=== PATIENT | male | born 1935 | race Caucasian/White ===

== ENCOUNTER 2020-11-03 10:05 | Inpatient (IN) ==
--- NOTE | 2020-11-03 10:53 | Emergency Department Note ---
Impression & Plan COVID-19, Pneumonia, SOB (shortness of breath) ED Provider Note NAME: PARUL LUX AGE: 85 SEX: M : 1935 ARRIVES VIA: Walk-In INFORMANT: Patient, the patient's family member ED PROVIDER(S): Volodymyr Mukherjee DO CHIEF COMPLAINT: Difficulty breathing HPI: The patient is an 85-year-old male who received the Covid vaccination at the beginning of the month. He states that the Covid vaccine is what is causing most of the symptoms. He states that ever since last week he has been having very severe shortness of breath. The patient describes extensive shortness of breath with any exertion. He states he has a cough with productive sputum. He also complains of low-grade fever. The patient was seen by his primary care ph ysician and was diagnosed with a bronchitis. He was started on Zithromax over the weekend with no improvement of his symptoms. He does complain of low-grade fever. He denies having any chest pain. He denies having any lower extremity swelling or pain. The patient does not have any significant past medical history other than prostate cancer. The patient states his symptoms are moderate to severe and only continue to worsen. The patient states that he has been trying [id number] medication known he continues to worsen. The patient has been also noticing dizziness and fatigue and generalized weakness. He was tested for COVID-19 over the weekend and it was negative. ROS: See above HPI for pertinent positives & negatives. A total of 10 systems reviewed and were otherwise negative. PAST MEDICAL HISTORY: See Below PAST SURGICAL HISTORY: See Below FAMILY HISTORY: See Below SOCIAL HISTORY: See Below HOME MEDICATIONS: See Below ALLERGIES: See Below VITALS: See Below PHYSICAL EXAMINATION: GENERAL: Patient is awake alert in no acute distress patient is resting comfortably and showing no signs of anxiety EYES: The conjunctivae are clear. The pupils are round and reactive. EARS, NOSE, MOUTH AND THROAT: The nose is without any evidence of any deformity. NECK: The neck is nontender and supple. RESPIRATORY: Shallow respirations were noted. There were rales at the left base with diminished breath sounds at the right base. There is mild conversational dyspnea appreciated. CARDIOVASCULAR: Regular rate and rhythm noted there no murmurs rubs or gallops normal S1 normal S2. GASTROINTESTINAL: The abdomen is soft. Abdomen is nontender. MUSCULOSKELETAL/EXTREMITIES: There is no evidence of gross deformity full range of motion is noted in the hips and shoulders. SKIN: There is no obvious evidence of any rash. No significant pedal edema was noted. NEUROLOGIC: Patient is awake alert and oriented x3. MEDICAL DECISION MAKING: Patient is an 85-year-old male who presented to the emergency department with family member for an evaluation of severe shortness of breath. The patient was having shortness of breath which was very significant with any exertion. He recently was vaccinated for COVID-19. He was tested again for COVID-19 in the emergency department and was found to be positive. I discussed the patient's laboratory and radiographic studies with him. He was not significantly hypoxic but became very dyspneic with any short walking or any exertion. For this reason I discussed this case with the on-call [facility] group the patient's family members were very uncomfortable with him being discharged to home given he was recently seen at [facility] for similar complaints. Triage Nursing notes reviewed. Prior medical records reviewed Vital Signs: reviewed and remarkable for tachypnea and elevated blood pressure. Differential diagnosis: Reactive airway disease, pneumonia, pneumothorax, COPD, CHF, infections, cardiac ischemia, pulmonary embolism, musculoskeletal, gastrointestinal, as well as other pathologies. ER treatment provided: See below Diagnostics interpreted by me: ECG: EKG was obtained in the emergency department. My interpretation is sinus bradycardia 58 bpm. There is no ectopy. There was no acute ST segment abnormalities noted. No previous tracing was available. Cardiac Monitoring: An order was placed for continuous cardiac monitoring. The monitor shows a rate of 55 bpm with sinus bradycardia rhythm. Laboratory studies: As stated above and show below. Imaging studies: See below Consultation(s): 1300: I discussed this case with Dr. Jefferson who is on-call for the [facility] hospitalist group. Past Med/Surg History Medical History History of cataract Prostate cancer Surgical History History of prostatectomy Social History Smoking Status: Never smoker Second Hand Exposure: No; Do You Dip or Chew Tobacco: No; Hx Alcohol Use: Yes Alcohol type: beer Hx Substance Use: No Preferred Language: [place]orese Communication Ability: Effective Inventory Control Analyst Required: No Beliefs That Will Affect Care: None Current Living Situation: Alone Feels Safe at Home: Yes Safety Concerns: Feels Safe At This Time Assistive Devices: None Allergies Allergies Allergy/AdvReac Type Severity Reaction Status Date / Time latex AdvReac skin Verified 11/03/20 11:40 irritation Home Meds Home Medications Medication Instructions Recorded Confirmed acetaminophen [Tylenol] 650 mg PO QID PRN 11/03/20 11/03/20 Results & Data (ED) Vital Signs Vital Signs - 24 hr 11/03/20 10:12 11/03/20 10:57 11/03/20 10:58 Temperature 37.1 C Temperature Source Temporal Artery Scan Pulse Rate 69 Pulse Rate [Right Finger] Respiratory Rate 16 Respiratory Effort / Characteristics Non-Labored Spontaneous Respiratory Depth Normal Blood Pressure 104/62 Blood Pressure [Right Arm] Blood Pressure Mean 76 Blood Pressure Mean [Right Arm] Pulse Oximetry 94 Oxygen Delivery Method Room Air Room Air Sepsis Recent Fever Within 48 Hours No Sepsis New/Unexplained Change in Mental Status No Sepsis Action Taken by Nursing No Action Required 11/03/20 11:54 11/03/20 12:31 11/03/20 13:00 Temperature Temperature Source Pulse Rate Pulse Rate [Right Finger] 62 64 64 Respiratory Rate 24 21 26 H Respiratory Effort / Characteristics Non-Labored Respiratory Depth Normal Blood Pressure Blood Pressure [Right Arm] 126/67 127/74 114/63 Blood Pressure Mean Blood Pressure Mean [Right Arm] 86 91 80 Pulse Oximetry 95 96 96 Oxygen Delivery Method Room Air Room Air Room Air Sepsis Recent Fever Within 48 Hours Sepsis New/Unexplained Change in Mental Status Sepsis Action Taken by [facility] Medications Current Medication List: was personally reviewed by me Laboratory Data Attestation: I reviewed the patient's lab results. Result diagrams: 11/03/20 10:53 11/03/20 10:53 Lab Results 11/03/20 11/03/20 11/03/20 Range/Units 10:53 10:53 10:53 WBC 5.96 (4.8-10.8) K/uL RBC 4.75 (4.7-6.1) M/uL Hgb 14.3 (14.0-18.0) g/dL Hct 40.9 L (42-52) % MCV 86.1 (80-100) fL MCH 30.1 (25-34) pg MCHC 35.0 (32-36) g/dL RDW Std Deviation 40.2 (36.4-46.3) fL RDW Coeff of Tyrell 12.5 (11.5-14.5) % Plt Count 175 (130-400) K/uL MPV 11.5 H (7.4-10.4) fL Immature Gran % (Auto) 0.2 % Neut % (Auto) 88.6 % Lymph % (Auto) 6.5 % [place] % (Auto) 4.7 % Eos % (Auto) 0.0 % Baso % (Auto) 0.0 % Neut # (Auto) 5.28 (1.4-6.5) K/uL Lymph # (Auto) 0.39 L (1.2-3.4) K/uL [place] # (Auto) 0.28 (0.11-0.59) K/uL Eos # (Auto) 0.00 (0-0.5) K/uL Baso # (Auto) 0.00 (0-0.2) K/uL Immature Gran # (Auto) 0.01 (0.00-0.02) K/uL PT 10.0 (9.0-12.0) Seconds INR 1.0 (0.9-1.1) APTT 28.0 (21.0-31.0) Seconds PTT Ratio 1.1 D-Dimer 2250 H* (0-500) ug/L FEU Sodium 138 (136-145) mmol/L Potassium 3.7 (3.5-5.1) mmol/L Chloride 105 (98-107) mmol/L Carbon Dioxide 27 (21-32) mmol/L Anion Gap 6.0 (3-11) BUN 12 (7-18) mg/dl Creatinine 0.97 (0.6-1.4) mg/dl Est Cr Clr Drug Dosing Not Reportable Est GFR ( Amer) 83.3 Est GFR (Non-Af Amer) 71.9 BUN/Creatinine Ratio 12.8 (10-20) Glucose 105 H (70-99) mg/dl Calcium 8.2 L (8.5-10.1) mg/dl Magnesium 2.1 (1.8-2.4) mg/dl Total Bilirubin 0.5 (0.2-1) mg/dl AST 34 (15-37) U/L ALT 26 (12-78) U/L Alkaline Phosphatase 30 L (45-117) U/L Troponin I < 0.015 (0-0.045) ng/ml NT-Pro-B Natriuret Pep 535 (0-1800) pg/ml Total Protein 6.0 L (6.4-8.2) gm/dl Albumin 2.7 L (3.4-5.0) gm/dl Globulin 3.3 (2.5-4.0) gm/dl Albumin/Globulin Ratio 0.8 L (0.9-2) Urine Color Urine Appearance (Clear) Urine pH (4.5-7.5) Ur Specific [place] (1.000-1.030) Urine Protein (Negative) Urine Glucose (UA) (Negative) Urine Ketones (Negative) Urine Blood (Negative) Urine Nitrite (Negative) Urine Bilirubin (Negative) Urine Urobilinogen (Negative) Ur Leukocyte Esterase (Negative) Urine WBC (Auto) (0-5) /hpf Urine RBC (Auto) (0-4) /hpf U Hyaline Cast (Auto) (0-5) /lpf U Epithel Cells (Auto) (0-5) /lpf Urine Bacteria (Auto) (Negative) COVID-19 Eval Order SARS-CoV-2 (PCR) (Negative) Influenza Type A (PCR) (Neg) Influenza Type B (PCR) (Neg) RSV (RT-PCR) (Neg) 11/03/20 11/03/20 11/03/20 Range/Units 11:31 11:31 12:25 WBC (4.8-10.8) K/uL RBC (4.7-6.1) M/uL Hgb (14.0-18.0) g/dL Hct (42-52) % MCV (80-100) fL MCH (25-34) pg MCHC (32-36) g/dL RDW Std Deviation (36.4-46.3) fL RDW Coeff of Tyrell (11.5-14.5) % Plt Count (130-400) K/uL MPV (7.4-10.4) fL Immature Gran % (Auto) % Neut % (Auto) % Lymph % (Auto) % [place] % (Auto) % Eos % (Auto) % Baso % (Auto) % Neut # (Auto) (1.4-6.5) K/uL Lymph # (Auto) (1.2-3.4) K/uL [place] # (Auto) (0.11-0.59) K/uL Eos # (Auto) (0-0.5) K/uL Baso # (Auto) (0-0.2) K/uL Immature Gran # (Auto) (0.00-0.02) K/uL PT (9.0-12.0) Seconds INR (0.9-1.1) APTT (21.0-31.0) Seconds PTT Ratio D-Dimer (0-500) ug/L FEU Sodium (136-145) mmol/L Potassium (3.5-5.1) mmol/L Chloride (98-107) mmol/L Carbon Dioxide (21-32) mmol/L Anion Gap (3-11) BUN (7-18) mg/dl Creatinine (0.6-1.4) mg/dl Est Cr Clr Drug Dosing Est GFR ( Amer) Est GFR (Non-Af Amer) BUN/Creatinine Ratio (10-20) Glucose (70-99) mg/dl Calcium (8.5-10.1) mg/dl Magnesium (1.8-2.4) mg/dl Total Bilirubin (0.2-1) mg/dl AST (15-37) U/L ALT (12-78) U/L Alkaline Phosphatase (45-117) U/L Troponin I (0-0.045) ng/ml NT-Pro-B Natriuret Pep (0-1800) pg/ml Total Protein (6.4-8.2) gm/dl Albumin (3.4-5.0) gm/dl Globulin (2.5-4.0) gm/dl Albumin/Globulin Ratio (0.9-2) Urine Color Dark Yellow Urine Appearance Clear (Clear) Urine pH 6.0 (4.5-7.5) Ur Specific [place] 1.021 (1.000-1.030) Urine Protein 1+ H (Negative) Urine Glucose (UA) Negative (Negative) Urine Ketones Negative (Negative) Urine Blood Negative (Negative) Urine Nitrite Negative (Negative) Urine Bilirubin Negative (Negative) Urine Urobilinogen Negative (Negative) Ur Leukocyte Esterase Negative (Negative) Urine WBC (Auto) 1-5 (0-5) /hpf Urine RBC (Auto) 0-4 (0-4) /hpf U Hyaline Cast (Auto) 1-5 (0-5) /lpf U Epithel Cells (Auto) 20-30 H (0-5) /lpf Urine Bacteria (Auto) Negative (Negative) COVID-19 Eval Order CovFluRsv at [facility] SARS-CoV-2 (PCR) POSITIVE A* (Negative) Influenza Type A (PCR) Negative (Neg) Influenza Type B (PCR) Negative (Neg) RSV (RT-PCR) Negative (Neg) Imaging Data Radiologist's Impression: Chest X-Ray 11/03/20 10:53 XR chest 1V portable HISTORY: 85 years-old Male Dyspnea acute shortness of breath COMPARISON: None TECHNIQUE: Portable AP view of the chest FINDINGS: Interstitial opacities of the mid and lower lung zones. No pneumothorax, pleural effusion or overt pulmonary edema. Degenerative changes of the shoulders and spine. Cardiac silhouette is enlarged. IMPRESSION: 1. Interstitial opacities of the mid and lower lung zones may be on a chronic basis or represent an interstitial pneumonitis. 2. Cardiomegaly. ACT 112: Negative or not required by law. The above report was generated using voice recognition software. It may contain grammatical, syntax or spelling errors. Electronically signed by: Burt Cast M.D. 11/03/2020 11:13 AM Discharge Plan Visit Data Chief Complaint: Shortness of Breath/Dyspnea Stated Complaint: SOB ED Provider: Volodymyr Mukherjee Discharge Problem: COVID-19, Pneumonia, SOB (shortness of breath) Patient Disposition: Being Evaluated by Hospitalist Condition: Good Discharge Instructions Interventions: ED Discharge Assessment Last Done: 11/03/20 14:37 Discharge Problem: Pneumonia Qualifiers: Pneumonia type: due to unspecified organism Laterality: bilateral Lung location: unspecified part of lung Qualified Code(s): J18.9 - Pneumonia, unsp ecified organism
--- NOTE | 2020-11-03 11:14 | XRay Report ---
XR chest 1V portable HISTORY: 85 years-old Male Dyspnea acute shortness of breath COMPARISON: None TECHNIQUE: Portable AP view of the chest FINDINGS: Interstitial opacities of the mid and lower lung zones. No pneumothorax, pleural effusion or overt pu lmonary edema. Degenerative changes of the shoulders and spine. Cardiac silhouette is enlarged. IMPRESSION: 1. Interstitial opacities of the mid and lower lung zones may be on a chronic basis or represent an i nterstitial pneumonitis. 2. Cardiomegaly. ACT 112: Negative or not required by law. The above report was generated using voice recognition software. It may contain grammatical, syntax o r spelling errors. Electronically signed by: Burt Cast M.D. 11/03/2020 11:13 AM
[2020-11-03 11:19] LABS: Hematocrit (blood only) 40.9 % (42-52); Hemoglobin 14.3 g/dL (14.0-18.0); Immature Granulocytes # (auto) 0.01 K/uL (0.00-0.02); Immature Granulocytes % (auto) 0.2 %; Lymphocytes # (auto) 0.39 K/uL (1.2-3.4); Lymphocytes % (auto) 6.5 %; Mean Corpuscular Hemoglobin 30.1 pg (25-34); Mean Corpuscular Volume 86.1 fL (80-100); Mean Platelet Volume 11.5 fL (7.4-10.4); Monocytes # (auto) 0.28 K/uL (0.11-0.59); Monocytes % (auto) 4.7 %; Neutrophils # (auto) 5.28 K/uL (1.4-6.5); Neutrophils % (auto) 88.6 %; Platelet Count 175 K/uL (130-400); RDW Coefficient of Variation 12.5 % (11.5-14.5); RDW Standard Deviation 40.2 fL (36.4-46.3); Red Blood Count 4.75 M/uL (4.7-6.1); White Blood Count 5.96 K/uL (4.8-10.8)
[2020-11-03 11:38] LABS: Alanine Aminotransferase 26 U/L (12-78); Albumin Level 2.7 gm/dl (3.4-5.0); Aspartate Aminotransferase 34 U/L (15-37); BUN Creatinine Ratio 12.8 (10-20); Blood Urea Nitrogen 12 mg/dl (7-18); Calcium 8.2 mg/dl (8.5-10.1); Carbon Dioxide 27 mmol/L (21-32); Chloride 105 mmol/L (98-107); Est GFR (African American) 83.3; Est GFR (Non-African American) 71.9; Glucose 105 mg/dl (70-99); Magnesium 2.1 mg/dl (1.8-2.4); Partial Thromboplastin Ratio 1.1; Potassium 3.7 mmol/L (3.5-5.1); Sodium 138 mmol/L (136-145)
[2020-11-03 11:43] LABS: Albumin Globulin Ratio 0.8 (0.9-2); Alkaline Phosphatase 30 U/L (45-117); Bilirubin,Total 0.5 mg/dl (0.2-1); D Dimer 2250 ug/L FEU (0-500); Globulin 3.3 gm/dl (2.5-4.0); NT Pro B Type Natriuretic Pept 535 pg/ml (0-1800); Troponin I < 0.015 ng/ml (0-0.045)
[2020-11-03 12:21] LABS: Influenza A virus by PCR Negative (Neg); Influenza B virus by PCR Negative (Neg); RSV by PCR Negative (Neg)
[2020-11-03 12:38] LABS: SARS CoV2 RNA(COVID-19) InHosp POSITIVE (Negative)
[2020-11-03 12:53] LABS: Appearance Urine Clear (Clear); Bacteria Urine Automated Negative (Negative); Bilirubin Urine Negative (Negative); Blood Urine Negative (Negative); Color Urine Dark Yellow; Epithelial Cell Urine Auto 20-30 /lpf (0-5); Glucose Urine UA Negative (Negative); Ketones Urine Negative (Negative); Leukocyte Esterase Urine Negative (Negative); Nitrite Urine Negative (Negative); Protein Urine 1+ (Negative); RBC Urine Automated 0-4 /hpf (0-4); Specific Gravity Urine 1.021 (1.000-1.030); Urobilinogen Urine Negative (Negative)
--- NOTE | 2020-11-03 13:17 | History & Physical Report ---
Date of Service November 03, 2020 Assessment & Plan (1) COVID-19: Main symptoms of shortness of breath on exertion and fatigue Isolation precautions. Self prone as able. Given no hypoxia of significant respiratory distress at rest will defer any treatment at this time. (2) DVT prophylaxis: Increased d-dimer in setting of COVID-19 pneumonia therefore will given increased dose. Lovenox 40mg SQ BID Admission and Anticipated Discharge Date Admission Date: November 03, 2020 History of Present Illness Chief Complaint: Upper respiratory illness Primary Care Provider: Haile Richardson Rafi Swift is an 85-year-old male who presents to the ER with ongoing upper respiratory symptoms. Reports having his 1st dose of the Pfizer vaccine on October 22. Following this he appears to become unwell around October 27. Initial symptoms of fever, chills, shortness of breath, cough, fatigue. He denies any loss of taste or smell, myalgias, headache, sore throat, diarrhea, nausea/vomiting. Initially saw his primary care physician 3 days ago who diagnosed bronchitis and he was started on azithromycin. His symptoms continued to get worse and the following day went to located in emergency room and was discharged after about 4 hours. He was not diagnosed with COVID-19 pneumonia on either these occasions although unclear when/if a test was taken as he denies any nasal swabs. His son has been living with him for the past 4 days and has witnessed his decline with activities of daily living during this time. His appetite is significantly suppressed, very short of breath on minimal exertion and very fatigued. Today was so bad he was unable to feed himself. He usually lives alone in a 2nd floor apartment. Prior to this illness he was healthy with no chronic medical conditions. In the ER chest x-ray was concerning for interstitial infiltrates. Labs significant for lymphopenia with elevated D-dimer. SARS-CoV-2 PCR nasal swab positive. Initially plan to discharge as the patient is not hypoxic at rest however his son feels he is not safe to return home at the current time and fatigue state especially given he has to make it up a flight of stairs to get back into his apartment. Allergies Allergy/AdvReac Type Severity Reaction Status Date / Time latex AdvReac skin Verified 11/03/20 11:40 irritation Home Medications Medication Instructions Recorded Confirmed Type acetaminophen [Tylenol] 650 mg PO QID PRN 11/03/20 11/03/20 History Past Med/Surg History Medical History History of cataract Prostate cancer Surgical History History of prostatectomy Social History Smoking Status: Never smoker Second Hand Exposure: No; Do You Dip or Chew Tobacco: No; Hx Alcohol Use: Yes Alcohol type: beer Hx Substance Use: No Preferred Language: Slovenian Communication Ability: Effective Custom Shoemaker Required: No Beliefs That Will Affect Care: None Current Living Situation: Alone Feels Safe at Home: Yes Safety Concerns: Feels Safe At This Time Assistive Devices: Denture - Upper Review of Systems Review of Systems: All systems reviewed & are unremarkable except as noted in HPI & below Physical Exam Constitutional: well developed and well nourished; no acute distress Eyes: + anicteric sclerae; normal pupil size ENMT: Ears: no external ear abnormality Nose: no external nose abnormality Mouth: + dry oral mucous membranes Neck: trachea midline, no thyromegaly Respiratory: normal respiratory effort and able to speak in complete sentences; no retractions, does not use accessory muscles, no cough, normal respiratory pattern, not tachypneic and expiratory phase not prolonged Auscultation: + diminished lung sounds (Right > Left) and + crackles (Left > right); no wheezes Cardiovascular: RRR, no murmur, no edema Gastrointestinal (Abdomen): normal bowel sounds, soft, nontender, no hepatosplenomegaly Musculoskeletal: no cyanosis or clubbing, extremities motor strength 5/5 Skin: no rashes, warm and dry Neurologic: moves all extremities and awake; not confused Psychiatric: A+Ox3, euthymic affect Results & Data Results & Data ([facility]) Vital Signs (Past 12 Hours) Vital Signs Temp Pulse Pulse Resp BP BP Pulse Ox 11/03/20 11:54 62 24 126/67 95 11/03/20 10:12 37.1 C 69 16 104/62 94 Diagnostic Findings XR chest 1V portable IMPRESSION: 1. Interstitial opacities of the mid and lower lung zones may be on a chronic basis or represent an interstitial pneumonitis. 2. Cardiomegaly. Medications Administered ER Medications Given: None ECG Indication: SOB/dyspnea Rate (beats per minute): 58 Rhythm: sinus with SA Findings: no acute ischemic change Change: no significant change Code Status & VTE Plan Code Status Full VTE Prophylaxis Plan VTE Prophylaxis will be ordered: Yes PG Care Time/CCT Total # of Minutes Spent Total Time Spent with Patient: Total time spent is greater than 50% in coordination of care (as documented) at patient's floor/unit and/or counseling patient: Coding Level of Care Code 56708 OBS Care - Level 2 Diagnoses COVID-19 U07.1 DVT prophylaxis Z29.9
[2020-11-03] MEDS ORDERED: POLYETHYLENE (MIRALAX) 17 GM PACK PO PRN (15:17)
[2020-11-03] MEDS ORDERED: ONDANSETRON INJ 2 MG/ML 2 ML VIAL IV PRN (15:17)
[2020-11-03] MEDS: ACETAMINOPHEN 325 MG TAB PO PRN ×2 (16:40→21:30)
[2020-11-03] MEDS: ENOXAPARIN INJ 40 MG/0.4 ML SYR SQ SCH (21:30)
--- NOTE | 2020-11-04 06:37 | Electrocardiogram Report ---
Test Reason : Blood Pressure : / mmHG Vent. Rate : 058 BPM Atrial Rate : 058 BPM P-R Int : 134 ms QRS Dur : 076 ms QT Int : 416 ms P-R-T Axes : 011 -01 024 degrees QTc Int : 408 ms Sinus bradycardia with marked sinus arrhythmia Low voltage QRS Borderline ECG No previous ECGs available Confirmed by Jayden Henriquez ([id number]) on 11/04/2020 6:37:14 AM Referred By: Confirmed By:Jayden Henriquez
[2020-11-04 07:11] LABS: Basophils # (auto) 0.02 K/uL (0-0.2); Basophils % (auto) 0.4 %; Hematocrit (blood only) 42.9 % (42-52); Hemoglobin 14.7 g/dL (14.0-18.0); Immature Granulocytes # (auto) 0.02 K/uL (0.00-0.02); Immature Granulocytes % (auto) 0.4 %; Lymphocytes % (auto) 12.6 %; Mean Corpuscular Hemoglobin 29.7 pg (25-34); Mean Corpuscular Hgb Conc 34.3 g/dL (32-36); Mean Corpuscular Volume 86.7 fL (80-100); Mean Platelet Volume 11.3 fL (7.4-10.4); Monocytes # (auto) 0.27 K/uL (0.11-0.59); Monocytes % (auto) 4.9 %; Neutrophils # (auto) 4.53 K/uL (1.4-6.5); Neutrophils % (auto) 81.7 %; Platelet Count 186 K/uL (130-400); RDW Coefficient of Variation 12.6 % (11.5-14.5); RDW Standard Deviation 40.1 fL (36.4-46.3); Red Blood Count 4.95 M/uL (4.7-6.1); White Blood Count 5.54 K/uL (4.8-10.8)
[2020-11-04 07:46] LABS: Albumin Level 2.5 gm/dl (3.4-5.0); BUN Creatinine Ratio 14.3 (10-20); C Reactive Protein 3.34 mg/dl (0-0.29); Calcium 8.3 mg/dl (8.5-10.1); Creatinine Clr Calc Pharmacy 52.1 ml/min; Est GFR (African American) 83.3; Est GFR (Non-African American) 71.9; Potassium 3.8 mmol/L (3.5-5.1)
[2020-11-04 07:49] LABS: Albumin Globulin Ratio 0.7 (0.9-2); Bilirubin,Total 0.5 mg/dl (0.2-1); Globulin 3.6 gm/dl (2.5-4.0); Total Protein 6.1 gm/dl (6.4-8.2)
[2020-11-04] MEDS: dexAMETHasone 6 MG in SYRINGE 0 ML IV SCH (08:49)
[2020-11-04] MEDS: ENOXAPARIN INJ 40 MG/0.4 ML SYR SQ SCH ×2 (08:49→21:15)
[2020-11-04] MEDS ORDERED: DEXAMETHASONE SOD INJ 4 MG/ML VIAL IV SCH (09:00)
[2020-11-04] MEDS: ACETAMINOPHEN 325 MG TAB PO PRN (10:45)
--- NOTE | 2020-11-04 16:20 | Hospitalist Progress Note ---
Date of Service November 04, 2020 Assessment & Plan (1) COVID-19: Main symptoms of shortness of breath on exertion and fatigue Isolation precautions. Self prone as able. patients saturations dropped to 93% so I started dexamethasone 6mg IV daily get PT/OT evaluations to determine if he can go home likely here 2-3 days (2) DVT prophylaxis: Increased d-dimer in setting of COVID-19 pneumonia therefore will given increased dose. Lovenox 40mg SQ BID Admission and Anticipated Discharge Date Admission Date: November 03, 2020 Subjective patient doing well, breathing comfortably on room air saturations 94-96% at rest eating and drinking well waiting for therapy evaluations, he lives alone so need to be sure that he will be safe at home reviewed chart reviewed labs Review of Systems Review of Systems: All systems reviewed & are unremarkable except as noted in Subjective Constitutional: + fatigue and + weakness; no fever, no chills and no sweats Respiratory: no cough, no dyspnea and no dyspnea on exertion Cardiovascular: no chest pain and no edema Gastrointestinal: no abdominal pain, no nausea, no vomiting, no constipation and no diarrhea/loose stools Physical Exam Constitutional: WD/WN, vitals as above no acute distress Neck: trachea midline, no thyromegaly Respiratory: normal respiratory effort, lungs clear to auscultation Cardiovascular: RRR, no murmur, no edema Gastrointestinal (Abdomen): normal bowel sounds, soft, nontender, no hepatosplenomegaly Musculoskeletal: no cyanosis or clubbing, extremities motor strength 5/5 Skin: no rashes, warm and dry Neurologic: patellar DTR's 2+ bilat, sensation intact and PERRL, EOMI, accommodation nl, no face palsy, no dysarthria Psychiatric: A+Ox3, euthymic affect Lymphatic: no cervical or axillary lymphadenopathy Results & Data Results & Data ([facility]) Vital Signs (Past 12 Hours) Vital Signs Temp Pulse Pulse Resp BP BP Pulse Ox 11/04/20 15:18 36.4 C L 60 18 116/72 95 11/04/20 12:42 36.9 C 63 18 95 11/04/20 12:11 93 11/04/20 11:40 103/61 11/04/20 11:30 37.4 C 75 20 95/60 L 93 11/04/20 10:45 37.9 C H 11/04/20 08:03 37.9 C H 61 18 142/71 H 93 Laboratory Results Laboratory Results - last 24 hr 11/04/20 11/04/20 06:26 06:26 WBC 5.54 RBC 4.95 Hgb 14.7 Hct 42.9 MCV 86.7 MCH 29.7 MCHC 34.3 RDW Std Deviation 40.1 RDW Coeff of Tyrell 12.6 Plt Count 186 MPV 11.3 H Immature Gran % (Auto) 0.4 Neut % (Auto) 81.7 Lymph % (Auto) 12.6 [place] % (Auto) 4.9 Eos % (Auto) 0.0 Baso % (Auto) 0.4 Neut # (Auto) 4.53 Lymph # (Auto) 0.70 L [place] # (Auto) 0.27 Eos # (Auto) 0.00 Baso # (Auto) 0.02 Immature Gran # (Auto) 0.02 Sodium 138 Potassium 3.8 Chloride 103 Carbon Dioxide 29 Anion Gap 6.0 BUN 14 Creatinine 0.97 Est Cr Clr Drug Dosing 52.1 Est GFR ( Amer) 83.3 Est GFR (Non-Af Amer) 71.9 BUN/Creatinine Ratio 14.3 Glucose 80 Calcium 8.3 L Total Bilirubin 0.5 AST 40 H ALT 23 Alkaline Phosphatase 32 L C-Reactive Protein 3.34 H Total Protein 6.1 L Albumin 2.5 L Globulin 3.6 Albumin/Globulin Ratio 0.7 L Medications Administered Current Inpatient Medications Acetaminophen (Acetaminophen 325 Mg Tab) 650 mg PO Q4H PRN PRN Reason: pain/fever Stop: 12/03/20 15:16 Last Admin: 11/04/20 10:45 Dose: 650 mg Documented by: Enoxaparin Sodium (Enoxaparin Inj 40 Mg/0.4 Ml Syr) 40 mg SQ BID [facility] Stop: 12/03/20 20:59 Last Admin: 11/04/20 08:49 Dose: 40 mg Documented by: Dexamethasone 6 mg/ Syringe 1.5 mls @ 1 mls/min IV DAILY DIYA Stop: 12/04/20 08:59 Last Admin: 11/04/20 08:49 Dose: 1 mls/min Documented by: Ondansetron HCl (Ondansetron Inj 2 Mg/Ml 2 Ml Vial) 4 mg IV Q6H PRN PRN Reason: Nausea Stop: 12/03/20 15:16 Polyethylene Glycol (Polyethylene (Miralax) 17 Gm Pack) 17 gm PO DAILY PRN PRN Reason: Constipation Stop: 12/03/20 15:16 PG Care Time/CCT Total # of Minutes Spent Total Time Spent with Patient: Total time spent is greater than 50% in coordination of care (as documented) at patient's floor/unit and/or counseling patient: Coding Level of Care Code 67762 Subseq Hosp Care Lvl 2 Diagnoses COVID-19 U07.1 DVT prophylaxis Z29.9
[2020-11-05] MEDS: ENOXAPARIN INJ 40 MG/0.4 ML SYR SQ SCH ×2 (08:49→20:30)
[2020-11-05] MEDS: dexAMETHasone 6 MG in SYRINGE 0 ML IV SCH (08:49)
[2020-11-05] MEDS: ACETAMINOPHEN 325 MG TAB PO PRN (09:21)
[2020-11-05] MEDS ORDERED: guaiFENesin 600 MG TABCR PO STA (09:37)
[2020-11-05] MEDS: AZITHROMYCIN 250 MG TAB PO SCH (10:45)
--- NOTE | 2020-11-05 12:56 | Hospitalist Progress Note ---
Date of Service November 05, 2020 Assessment & Plan (1) COVID-19: Main symptoms of shortness of breath on exertion and fatigue Isolation precautions. Self prone as able. patients saturations dropped to 93% so I started dexamethasone 6mg IV daily on 11/04 continue dexamethasone, day 2, saturations still in the range of 93-95% get PT/OT evaluations to determine if he can go home, still pending likely here over the weekend as he lives alone and would not be strong enough to be alone (2) DVT prophylaxis: Lovenox 40mg SQ BID Admission and Anticipated Discharge Date Admission Date: November 03, 2020 Subjective patient doing well, says he has no issues breathing does admit to a dry cough and wheezing when he takes a deep breath, this is more irritating than anything else he is eating well, no fever, no chills/sweats he says his main issue is overwhelming weakness, he wishes he could get stronger encouraged him to be patient, will work with PT/OT left a voicemail for his son to provide update Review of Systems Review of Systems: All systems reviewed & are unremarkable except as noted in Subjective Constitutional: + weakness; no fever and no fatigue Respiratory: + cough and + wheezing; no dyspnea and no dyspnea on exertion Cardiovascular: no chest pain and no edema Gastrointestinal: no abdominal pain, no nausea, no vomiting, no constipation and no diarrhea/loose stools Musculoskeletal: + muscle weakness (generalized) Physical Exam Constitutional: WD/WN, vitals as above no acute distress Neck: trachea midline, no thyromegaly Respiratory: normal respiratory effort, lungs clear to auscultation Cardiovascular: RRR, no murmur, no edema Gastrointestinal (Abdomen): normal bowel sounds, soft, nontender, no hep atosplenomegaly Musculoskeletal: no cyanosis or clubbing, extremities motor strength 5/5 Skin: no rashes, warm and dry Neurologic: patellar DTR's 2+ bilat, sensation intact and PERRL, EOMI, accommodation nl, no face palsy, no dysarthria Psychiatric: A+Ox3, euthymic affect Lymphatic: no cervical or axillary lymphadenopathy Results & Data Results & Data ([facility]) Vital Signs (Past 12 Hours) Vital Signs Temp Pulse Resp BP Pulse Ox 11/05/20 07:08 37.2 C 61 16 154/75 H 93 Medications Administered Current Inpatient Medications Acetaminophen (Acetaminophen 325 Mg Tab) 650 mg PO Q4H PRN PRN Reason: pain/fever Stop: 12/03/20 15:16 Last Admin: 11/05/20 09:21 Dose: 650 mg Documented by: Azithromycin (Azithromycin 250 Mg Tab) 500 mg PO QAM REPLACED BY [facility] Stop: 11/12/20 09:44 Last Admin: 11/05/20 10:45 Dose: 500 mg Documented by: Enoxaparin Sodium (Enoxaparin Inj 40 Mg/0.4 Ml Syr) 40 mg SQ BID REPLACED BY [facility] Stop: 12/03/20 20:59 Last Admin: 11/05/20 08:49 Dose: 40 mg Documented by: Guaifenesin (Guaifenesin 600 Mg Tabcr) 600 mg PO Q12 REPLACED BY [facility] Stop: 12/05/20 20:59 Dexamethasone 6 mg/ Syringe 1.5 mls @ 1 mls/min IV DAILY REPLACED BY [facility] Stop: 12/04/20 08:59 Last Admin: 11/05/20 08:49 Dose: 1 mls/min Documented by: Ondansetron HCl (Ondansetron Inj 2 Mg/Ml 2 Ml Vial) 4 mg IV Q6H PRN PRN Reason: Nausea Stop: 12/03/20 15:16 Polyethylene Glycol (Polyethylene (Miralax) 17 Gm Pack) 17 gm PO DAILY PRN PRN Reason: Constipation Stop: 12/03/20 15:16 PG Care Time/CCT Total # of Minutes Spent Total Time Spent with Patient: Total time spent is greater than 50% in coordination of care (as documented) at patient's floor/unit and/or counseling patient: Coding Level of Care Code 67833 Subseq Hosp Care Lvl 2 Diagnoses COVID-19 U07.1 DVT prophylaxis Z29.9
[2020-11-05] MEDS: guaiFENesin 600 MG TABCR PO SCH (20:30)
[2020-11-06] MEDS: guaiFENesin 600 MG TABCR PO SCH ×2 (08:31→20:50)
[2020-11-06] MEDS: AZITHROMYCIN 250 MG TAB PO SCH (08:31)
[2020-11-06] MEDS: dexAMETHasone 6 MG in SYRINGE 0 ML IV SCH (08:32)
[2020-11-06] MEDS: ENOXAPARIN INJ 40 MG/0.4 ML SYR SQ SCH ×2 (08:32→20:50)
[2020-11-06] MEDS: ACETAMINOPHEN 325 MG TAB PO PRN (08:53)
--- NOTE | 2020-11-06 22:35 | Hospitalist Progress Note ---
Date of Service November 06, 2020 Assessment & Plan (1) COVID-19: Main symptoms of shortness of breath on exertion and fatigue Isolation precautions. Self prone as able. patients saturations dropped to 93% so I started dexamethasone 6mg IV daily on 11/04 continue dexamethasone, day 3 now with mild hypoxemia, sats were 86% on room air, placed on 2L NC, doing well get PT/OT evaluations to determine if he can go home he is stronger today, ambulating independently in the room likely here over the weekend as he lives alone and would not be strong enough to be alone try to wean off oxygen (2) DVT prophylaxis: Lovenox 40mg SQ BID (3) SOB (shortness of breath): (4) Acute respiratory failure with hypoxia: due to COVID on 2L NC today, no distress at all try to wean as tolerated Admission and Anticipated Discharge Date Admission Date: November 05, 2020 Subjective patient was a little hypoxic this morning, 86% room air, no distress placed on 2L, admits he feels better, saturations all > 92% eating well, his strength is better, walking around the room today no fever, no diarrhea, making urine updated his grand daughter over the phone Review of Systems Review of Systems: All systems reviewed & are unremarkable except as noted in Subjective Physical Exam Constitutional: WD/WN, vitals as above no acute distress Neck: trachea midline, no thyromegaly Respiratory: normal respiratory effort, lungs clear to auscultation Cardiovascular: RRR, no murmur, no edema Gastrointestinal (Abdomen): normal bowel sounds, soft, nontender, no hepatosplenomegaly Musculoskeletal: no cyanosis or clubbing, extremities motor strength 5/5 Skin: no rashes, warm and dry Neurologic: patellar DTR's 2+ bilat, sensation intact and PERRL, EOMI, accommodation nl, no face palsy, no dysarthria Psychiatric: A+Ox3, euthymic affect Lymphatic: no cervical or axillary lymphadenopathy Results & Data Results & Data ([facility]) Vital Signs (Past 12 Hours) Vital Signs Temp Pulse Resp BP Pulse Ox 11/06/20 16:59 36.6 C 76 20 107/63 92 Medications Administered Current Inpatient Medications Acetaminophen (Acetaminophen 325 Mg Tab) 650 mg PO Q4H PRN PRN Reason: pain/fever Stop: 12/03/20 15:16 Last Admin: 11/06/20 08:53 Dose: 650 mg Documented by: Azithromycin (Azithromycin 250 Mg Tab) 500 mg PO QAM COUNTS INCLUDE 234 BEDS AT THE [facility] Stop: 11/12/20 09:44 Last Admin: 11/06/20 08:31 Dose: 500 mg Documented by: Enoxaparin Sodium (Enoxaparin Inj 40 Mg/0.4 Ml Syr) 40 mg SQ BID COUNTS INCLUDE 234 BEDS AT THE [facility] Stop: 12/03/20 20:59 Last Admin: 11/06/20 20:50 Dose: 40 mg Documented by: Guaifenesin (Guaifenesin 600 Mg Tabcr) 600 mg PO Q12 DI[facility] Stop: 12/05/20 20:59 Last Admin: 11/06/20 20:50 Dose: 600 mg Documented by: Dexamethasone 6 mg/ Syringe 1.5 mls @ 1 mls/min IV DAILY COUNTS INCLUDE 234 BEDS AT THE [facility] Stop: 12/04/20 08:59 Last Admin: 11/06/20 08:32 Dose: 1 mls/min Documented by: Ondansetron HCl (Ondansetron Inj 2 Mg/Ml 2 Ml Vial) 4 mg IV Q6H PRN PRN Reason: Nausea Stop: 12/03/20 15:16 Polyethylene Glycol (Polyethylene (Miralax) 17 Gm Pack) 17 gm PO DAILY PRN PRN Reason: Constipation Stop: 12/03/20 15:16 PG Care Time/CCT Total # of Minutes Spent Total Time Spent with Patient: Total time spent is greater than 50% in coordination of care (as documented) at patient's floor/unit and/or counseling patient: Coding Level of Care Code 88473 Subseq Hosp Care Lvl 2 Diagnoses COVID-19 U07.1 DVT prophylaxis Z29.9 SOB (shortness of breath) R06.02 Acute respiratory failure with hypoxia J96.01
[2020-11-07 07:00] LABS: Hematocrit (blood only) 40.8 % (42-52); Hemoglobin 14.3 g/dL (14.0-18.0); Mean Corpuscular Hemoglobin 30.1 pg (25-34); Mean Corpuscular Volume 85.9 fL (80-100); Mean Platelet Volume 10.6 fL (7.4-10.4); Platelet Count 234 K/uL (130-400); RDW Coefficient of Variation 12.4 % (11.5-14.5); RDW Standard Deviation 39.5 fL (36.4-46.3); Red Blood Count 4.75 M/uL (4.7-6.1); White Blood Count 6.26 K/uL (4.8-10.8)
[2020-11-07 07:19] LABS: Creatinine Clr Calc Pharmacy 56.8 ml/min; Est GFR (African American) 91.6; Est GFR (Non-African American) 79.1
[2020-11-07] MEDS: ENOXAPARIN INJ 40 MG/0.4 ML SYR SQ SCH ×2 (08:38→19:58)
[2020-11-07] MEDS: AZITHROMYCIN 250 MG TAB PO SCH (08:38)
[2020-11-07] MEDS: guaiFENesin 600 MG TABCR PO SCH ×2 (08:38→19:57)
[2020-11-07] MEDS: dexAMETHasone 6 MG in SYRINGE 0 ML IV SCH (08:38)
--- NOTE | 2020-11-07 21:57 | Hospitalist Progress Note ---
Date of Service November 07, 2020 Assessment & Plan (1) COVID-19: Main symptoms of shortness of breath on exertion and fatigue Isolation precautions. Self prone as able. patients saturations dropped to 93% so I started dexamethasone 6mg IV daily on 11/04 continue dexamethasone, day 4 now with mild hypoxemia, requiring a little more oxygen today with 3L oxymask get PT/OT evaluations to determine if he can go home he is stronger today, ambulating independently in the room likely here a few more days, will need to wean back to room air (2) DVT prophylaxis: Lovenox 40mg SQ BID (3) SOB (shortness of breath): (4) Acute respiratory failure with hypoxia: due to COVID on 3L mask today, no distress at all try to wean as tolerated Admission and Anticipated Discharge Date Admission Date: November 05, 2020 Subjective patient requiring a little more oxygen today at 3L oxymask no distress, c/o some wheezing and a cough when he takes a deep breath he is eating well, ambulating in the room no fever/chills, no chest pain, no vomiting or diarrhea CBC and Cr are stable I updated his son Palomo over the phone, discussed that he will be here a few days Review of Systems Review of Systems: All systems reviewed & are unremarkable except as noted in Subjective Physical Exam Constitutional: WD/WN, vitals as above no acute distress Neck: trachea midline, no thyromegaly Respiratory: normal respiratory effort, lungs clear to auscultation Cardiovascular: RRR, no murmur, no edema Gastrointestinal (Abdomen): normal bowel sounds, soft, nontender, no hepatosplenomegaly Musculoskeletal: no cyanosis or clubbing, extremities motor strength 5/5 Skin: no rashes, warm and dry Neurologic: patellar DTR's 2+ bilat, sensation intact and PERRL, EOMI, accommodation nl, no face palsy, no dysarthria Psychiatric: A+Ox3, euthymic affect Lymphatic: no cervical or axillary lymphadenopathy Results & Data Results & Data ([facility]) Vital Signs (Past 12 Hours) Vital Signs Temp Pulse Resp BP Pulse Ox 11/07/20 16:20 37 C 55 L 20 128/68 92 Laboratory Results Laboratory Results - last 24 hr 11/07/20 11/07/20 06:51 06:51 WBC 6.26 RBC 4.75 Hgb 14.3 Hct 40.8 L MCV 85.9 MCH 30.1 MCHC 35.0 RDW Std Deviation 39.5 RDW Coeff of Tyrell 12.4 Plt Count 234 MPV 10.6 H Creatinine 0.89 Est Cr Clr Drug Dosing 56.8 Est GFR ( Amer) 91.6 Est GFR (Non-Af Amer) 79.1 Medications Administered Current Inpatient Medications Acetaminophen (Acetaminophen 325 Mg Tab) 650 mg PO Q4H PRN PRN Reason: pain/fever Stop: 12/03/20 15:16 Last Admin: 11/06/20 08:53 Dose: 650 mg Documented by: Azithromycin (Azithromycin 250 Mg Tab) 500 mg PO QAM ON LICENSE OF [facility] Stop: 11/12/20 09:44 Last Admin: 11/07/20 08:38 Dose: 500 mg Documented by: Enoxaparin Sodium (Enoxaparin Inj 40 Mg/0.4 Ml Syr) 40 mg SQ BID ON LICENSE OF [facility] Stop: 12/03/20 20:59 Last Admin: 11/07/20 19:58 Dose: 40 mg Documented by: Guaifenesin (Guaifenesin 600 Mg Tabcr) 600 mg PO Q12 ON LICENSE OF [facility] Stop: 12/05/20 20:59 Last Admin: 11/07/20 19:57 Dose: 600 mg Documented by: Dexamethasone 6 mg/ Syringe 1.5 mls @ 1 mls/min IV DAILY ON LICENSE OF [facility] Stop: 12/04/20 08:59 Last Admin: 11/07/20 08:38 Dose: 1 mls/min Documented by: Ondansetron HCl (Ondansetron Inj 2 Mg/Ml 2 Ml Vial) 4 mg IV Q6H PRN PRN Reason: Nausea Stop: 12/03/20 15:16 Polyethylene Glycol (Polyethylene (Miralax) 17 Gm Pack) 17 gm PO DAILY PRN PRN Reason: Constipation Stop: 12/03/20 15:16 PG Care Time/CCT Total # of Minutes Spent Total Time Spent with Patient: Total time spent is greater than 50% in coordination of care (as documented) at patient's floor/unit and/or counseling patient: Coding Level of Care Code 80482 Subseq Hosp Care Lvl 2 Diagnoses COVID-19 U07.1 DVT prophylaxis Z29.9 SOB (shortness of breath) R06.02 Acute respiratory failure with hypoxia J96.01
[2020-11-08] MEDS: dexAMETHasone 6 MG in SYRINGE 0 ML IV SCH (08:27)
[2020-11-08] MEDS: guaiFENesin 600 MG TABCR PO SCH ×2 (08:29→21:24)
[2020-11-08] MEDS: AZITHROMYCIN 250 MG TAB PO SCH (08:32)
[2020-11-08] MEDS: ENOXAPARIN INJ 40 MG/0.4 ML SYR SQ SCH ×2 (08:32→21:24)
--- NOTE | 2020-11-08 11:30 | Hospitalist Progress Note ---
Date of Service November 08, 2020 Assessment & Plan (1) COVID-19: Main symptoms of shortness of breath on exertion and fatigue Isolation precautions. Self prone as able. patients saturations dropped to 93% so I started dexamethasone 6mg IV daily on 11/04 continue dexamethasone, day 5 developed hypoxia day 3 today he desaturated on 4L mask, RN had to place him on 10L mask moved him down to COVID unit as precaution in case he would need high flow once down on COVID unit he was down to 7L mask, I encouraged him to lay prone and his saturations went to 96-97% CXR with slight progression of infiltrates, right midlung zone DDimer 1200, CRP is < 1, WBC normal, Cr normal, electrolytes stable updated his son over the phone anticipate patient being here the rest of the week, might get worse and require high flow eating and drinking well, strength is good, walking in room told him to lay prone 3x a day for an hour or more each time (2) Acute respiratory failure with hypoxia: due to COVID sudden desaturation this morning (11/08) on 4L mask, dropped to mid 80s currently stable on 7L mask, no distress encourage to lay prone as tolerated (3) DVT prophylaxis: Lovenox 40mg SQ BID (4) SOB (shortness of breath): Admission and Anticipated Discharge Date Admission Date: November 05, 2020 Subjective called by RN this morning because the patient desaturated to low 80's on 4L mask she turned him up to 10L mask and was still low, mid to high 80's requested he be moved to COVID unit in anticipation he may need high flow oxygen patient titrated down to 7L oxymask once down to 219 he and I talked about the need for more oxygen, how this happens with COVID, not a big issue, we can manage it encouraged him to try to lay on his stomach, he says he normally does not lay on his stomach got him to get on his stomach and his saturations went up to 97% no distress, has a harsh cough but no sputum production eating well, making urine, moving his bowels will get a CXR and lab work Review of Systems Review of Systems: All systems reviewed & are unremarkable except as noted in Subjective Constitutional: no fever and no weakness Respiratory: + cough and + dyspnea on exertion; no dyspnea and no sputum production Cardiovascular: no chest pain and no edema Gastrointestinal: no abdominal pain, no nausea, no vomiting, no constipation and no diarrhea/loose stools Physical Exam Constitutional: WD/WN, vitals as above no acute distress Neck: trachea midline, no thyromegaly Respiratory: normal respiratory effort, lungs clear to auscultation Cardiovascular: RRR, no murmur, no edema Gastrointestinal (Abdomen): normal bowel sounds, soft, nontender, no hepatosplenomegaly Musculoskeletal: no cyanosis or clubbing, extremities motor strength 5/5 Skin: no rashes, warm and dry Neurologic: patellar DTR's 2+ bilat, sensation intact and PERRL, EOMI, accommodation nl, no face palsy, no dysarthria Psychiatric: A+Ox3, euthymic affect Lymphatic: no cervical or axillary lymphadenopathy Results & Data Results & Data ([facility]) Vital Signs (Past 12 Hours) Vital Signs Temp Pulse Resp BP BP Pulse Ox 11/08/20 10:56 37.0 C 57 L 22 114/71 98 11/08/20 08:39 36.4 C L 51 L 18 127/75 86 L Medications Administered Current Inpatient Medications Acetaminophen (Acetaminophen 325 Mg Tab) 650 mg PO Q4H PRN PRN Reason: pain/fever Stop: 12/03/20 15:16 Last Admin: 11/06/20 08:53 Dose: 650 mg Documented by: Azithromycin (Azithromycin 250 Mg Tab) 500 mg PO QAM ON LICENSE OF [facility] Stop: 11/12/20 09:44 Last Admin: 11/08/20 08:32 Dose: 500 mg Documented by: Enoxaparin Sodium (Enoxaparin Inj 40 Mg/0.4 Ml Syr) 40 mg SQ BID ON LICENSE OF [facility] Stop: 12/03/20 20:59 Last Admin: 11/08/20 08:32 Dose: 40 mg Documented by: Guaifenesin (Guaifenesin 600 Mg Tabcr) 600 mg PO Q12 [facility] Stop: 12/05/20 20:59 Last Admin: 11/08/20 08:29 Dose: 600 mg Documented by: Dexamethasone 6 mg/ Syringe 1.5 mls @ 1 mls/min IV DAILY [facility] Stop: 12/04/20 08:59 Last Admin: 11/08/20 08:27 Dose: 1 mls/min Documented by: Ondansetron HCl (Ondansetron Inj 2 Mg/Ml 2 Ml Vial) 4 mg IV Q6H PRN PRN Reason: Nausea Stop: 12/03/20 15:16 Polyethylene Glycol (Polyethylene (Miralax) 17 Gm Pack) 17 gm PO DAILY PRN PRN Reason: Constipation Stop: 12/03/20 15:16 PG Care Time/CCT Total # of Minutes Spent Total Time Spent: 32 Total Time Spent with Patient: Total time spent is greater than 50% in coordination of care (as documented) at patient's floor/unit and/or counseling patient: time spent transferring to COVID unit, evaluated twice, reviewed labs and interpreted CXR personally updated son over the phone Coding Level of Care Code 92834 Subseq Hosp Care Lvl 3 Diagnoses COVID-19 U07.1 Acute respiratory failure with hypoxia J96.01 DVT prophylaxis Z29.9 SOB (shortness of breath) R06.02
--- NOTE | 2020-11-08 12:10 | XRay Report ---
XR chest 1V portable CLINICAL HISTORY: worsening hypoxia, COVID COMPARISON STUDY: 11/03/2020 FINDINGS: The heart is borderline enlarged. There are peripheral airspace opacities right greater harriett n left, consistent with a multifocal pneumonia. There is no overt failure. There are no pleural effus ions.[ IMPRESSION: Progressive subtle airspace opacities, most pronounced within the right midlung zone ever[place] pherally. The findings are suggestive of a multifocal pneumonia. ACT 112: Negative or not required by law. Electronically signed by: Blade Montes M.D. 11/08/2020 12:08 PM
[2020-11-08 12:14] LABS: Hematocrit (blood only) 40.6 % (42-52); Hemoglobin 13.8 g/dL (14.0-18.0); Mean Corpuscular Hemoglobin 29.4 pg (25-34); Mean Corpuscular Volume 86.4 fL (80-100); Mean Platelet Volume 11.1 fL (7.4-10.4); Platelet Count 256 K/uL (130-400); RDW Coefficient of Variation 12.3 % (11.5-14.5); RDW Standard Deviation 39.5 fL (36.4-46.3); White Blood Count 10.85 K/uL (4.8-10.8)
[2020-11-08 12:32] LABS: Albumin Level 2.4 gm/dl (3.4-5.0); BUN Creatinine Ratio 22.9 (10-20); Calcium 8.6 mg/dl (8.5-10.1); Creatinine Clr Calc Pharmacy 55.5 ml/min; Est GFR (Non-African American) 77.7; Potassium 3.8 mmol/L (3.5-5.1)
[2020-11-08 12:35] LABS: Albumin Globulin Ratio 0.6 (0.9-2); Bilirubin,Total 0.4 mg/dl (0.2-1); C Reactive Protein 0.79 mg/dl (0-0.29); Total Protein 6.4 gm/dl (6.4-8.2)
[2020-11-08 12:40] LABS: D Dimer 1240 ug/L FEU (0-500)
[2020-11-09] MEDS: AZITHROMYCIN 250 MG TAB PO SCH (08:24)
[2020-11-09] MEDS: dexAMETHasone 6 MG in SYRINGE 0 ML IV SCH (08:24)
[2020-11-09] MEDS: ENOXAPARIN INJ 40 MG/0.4 ML SYR SQ SCH ×2 (08:25→21:33)
[2020-11-09] MEDS: guaiFENesin 600 MG TABCR PO SCH ×2 (09:02→21:34)
--- NOTE | 2020-11-09 16:06 | Hospitalist Progress Note ---
Date of Service November 09, 2020 Assessment & Plan (1) COVID-19: Main symptoms of shortness of breath on exertion and fatigue. His symptoms started approximately on 10/27 Maintain isolation precautions. patients saturations dropped to 93% so started dexamethasone 6mg IV daily on 11/04 He was outside the window for remdesivir treatment continue dexamethasone, day 6 developed hypoxia day 3 On 11/08, he desaturated on 4L mask, RN had to place him on 10L mask moved him down to COVID unit as precaution in case he would need high flow On 11/09, is weaned down to 2 L and doing very well. When he is lying prone, he is 97-100% on 2 L-he was encouraged to continue lying prone at least 3-4 times a day for an hour at a time CXR with slight progression of infiltrates, right midlung zone DDimer 1200 which is lower than previous, CRP is < 1, WBC normal, Cr normal, electrolytes stable Overall improved Continue azithromycin 500 mg p.o. once daily Continue guaifenesin 600 mg p.o. twice daily Tylenol as needed for pain or fevers (2) Acute respiratory failure with hypoxia: due to COVID As above, improving (3) SOB (shortness of breath): Secondary to Covid-19 pneumonia (4) Transaminitis: AST and ALT are mildly elevated, likely secondary to Covid-19 Follow LFTs in the morning (5) DVT prophylaxis: Lovenox 40mg SQ BID Disposition-continued stay, but may be able to be discharged in the next 1 to 2 days Admission and Anticipated Discharge Date Admission Date: November 05, 2020 Subjective Patient was transferred to the Covid unit in case of need for high flow nasal cannula. He is actually now weaned down to 2 L nasal cannula and pulse ox is 97% when I saw him while he was lying prone. He feels very well. Still some cough. Denies chest pain or nausea. No abdominal pain. Is feeling better overall. Review of Systems Review of Systems: All systems reviewed & are unremarkable except as noted in HPI & below Physical Exam Constitutional: WD/WN, vitals as above Eyes: + anicteric sclerae Neck: trachea midline, no thyromegaly Respiratory: normal respiratory effort, lungs clear to auscultation (Except faint crackles at the bases) Cardiovascular: RRR, no murmur, no edema Gastrointestinal (Abdomen): normal bowel sounds, soft, nontender, no hepatosplenomegaly Musculoskeletal: Extremities: extremities normal to inspection; no cyanosis and no clubbing Skin: no rashes, warm and dry Neurologic: moves all extremities and awake; no focal motor deficits Psychiatric: A+Ox3, euthymic affect Lymphatic: no lymphedema Results & Data Results & Data ([facility]) Vital Signs (Past 12 Hours) Vital Signs Temp Pulse Resp BP Pulse Ox 11/09/20 14:57 36.7 C 55 L 18 135/79 94 11/09/20 11:38 99 11/09/20 10:52 93 11/09/20 07:38 36.4 C L 48 L 19 130/70 93 Laboratory Results No laboratory values today Blood cultures remain no growth to date PG Care Time/CCT Total # of Minutes Spent Total Time Spent with Patient: Total time spent is greater than 50% in coordination of care (as documented) at patient's floor/unit and/or counseling patient: Coding Level of Care Code 57444 Subseq Hosp Care Lvl 3 Diagnoses COVID-19 U07.1 Acute respiratory failure with hypoxia J96.01 SOB (shortness of breath) R06.02 Transaminitis R74.01 DVT prophylaxis Z29.9
[2020-11-10 08:04] LABS: Basophils # (auto) 0.01 K/uL (0-0.2); Basophils % (auto) 0.1 %; Eosinophils # (auto) 0.02 K/uL (0-0.5); Eosinophils % (auto) 0.3 %; Hematocrit (blood only) 37.4 % (42-52); Immature Granulocytes # (auto) 0.06 K/uL (0.00-0.02); Immature Granulocytes % (auto) 0.8 %; Lymphocytes # (auto) 1.01 K/uL (1.2-3.4); Lymphocytes % (auto) 13.8 %; Mean Corpuscular Hemoglobin 29.7 pg (25-34); Mean Corpuscular Hgb Conc 34.8 g/dL (32-36); Mean Corpuscular Volume 85.4 fL (80-100); Mean Platelet Volume 10.9 fL (7.4-10.4); Monocytes # (auto) 0.78 K/uL (0.11-0.59); Monocytes % (auto) 10.6 %; Neutrophils # (auto) 5.46 K/uL (1.4-6.5); Neutrophils % (auto) 74.4 %; Platelet Count 307 K/uL (130-400); RDW Coefficient of Variation 12.4 % (11.5-14.5); RDW Standard Deviation 39.1 fL (36.4-46.3); Red Blood Count 4.38 M/uL (4.7-6.1); White Blood Count 7.34 K/uL (4.8-10.8)
[2020-11-10 08:39] LABS: Albumin Level 2.3 gm/dl (3.4-5.0); BUN Creatinine Ratio 27.2 (10-20); C Reactive Protein 0.82 mg/dl (0-0.29); Creatinine Clr Calc Pharmacy 61.6 ml/min; Est GFR (African American) 94.8; Est GFR (Non-African American) 81.8
[2020-11-10 08:42] LABS: Albumin Globulin Ratio 0.7 (0.9-2); Bilirubin,Total 0.5 mg/dl (0.2-1); Globulin 3.5 gm/dl (2.5-4.0); Total Protein 5.8 gm/dl (6.4-8.2)
[2020-11-10] MEDS: dexAMETHasone 6 MG in SYRINGE 0 ML IV SCH (09:12)
[2020-11-10] MEDS: ENOXAPARIN INJ 40 MG/0.4 ML SYR SQ SCH ×2 (09:14→20:50)
[2020-11-10] MEDS: AZITHROMYCIN 250 MG TAB PO SCH (09:14)
[2020-11-10] MEDS: guaiFENesin 600 MG TABCR PO SCH ×2 (10:05→20:50)
--- NOTE | 2020-11-10 18:41 | Hospitalist Progress Note ---
Date of Service November 10, 2020 Assessment & Plan (1) COVID-19: Main symptoms of shortness of breath on exertion and fatigue. His symptoms started approximately on 10/27 Maintain isolation precautions. patients saturations dropped to 93% so started dexamethasone 6mg IV daily on 11/04 He was outside the window for remdesivir treatment at the time of admission continue dexamethasone, day 7 of 10 On 11/08, he desaturated on 4L mask, RN had to place him on 10L mask moved him down to COVID unit as precaution in case he would need high flow On 11/09, he was weaned down to 2 L and doing very well. When he is lying prone, he is 97-100% on 2 L-he was encouraged to continue lying prone at least 3-4 times a day for an hour at a time On 11/10 he is completely weaned off oxygen and doing very well CXR with slight progression of infiltrates, right midlung zone DDimer 1200 which is lower than previous, CRP is < 1, WBC normal, Cr normal, electrolytes stable Overall significantly improved and can likely be discharged home tomorrow as long as remained stable We will check a two-step walking test in the morning Has now completed a full course of azithromycin 500 mg p.o. once daily Continue guaifenesin 600 mg p.o. twice daily Tylenol as needed for pain or fevers (2) Acute respiratory failure with hypoxia: due to COVID As above, significantly improved (3) SOB (shortness of breath): Secondary to Covid-19 pneumonia-now resolved (4) Transaminitis: AST and ALT are mildly elevated but improved from previous, likely secondary to Covid-19 (5) DVT prophylaxis: Lovenox 40mg SQ BID Disposition-continued stay, but may be able to be discharged tomorrow, will check two-step walk test in the morning Admission and Anticipated Discharge Date Admission Date: November 05, 2020 Subjective Patient feels great. His oxygen was turned off a little while ago and pulse ox remains at 92% on talking to him. He denies any chest pain or shortness of breath. Has been ambulating around the room without difficulty. He is eating well and drinking. He is moving his bowels. He feels well enough to go home hopefully tomorrow. Review of Systems Review of Systems: All systems reviewed & are unremarkable except as noted in HPI & below Physical Exam Constitutional: WD/WN, vitals as above Eyes: + anicteric sclerae ENMT: Ears: no hearing impairment Neck: trachea midline, no thyromegaly Respiratory: normal respiratory effort, lungs clear to auscultation Cardiovascular: RRR, no murmur, no edema Gastrointestinal (Abdomen): normal bowel sounds, soft, nontender, no hepatosplenomegaly Musculoskeletal: Extremities: extremities normal to inspection; no cyanosis and no clubbing Skin: no rashes, warm and dry Neurologic: moves all extremities and awake; no focal motor deficits Psychiatric: A+Ox3, euthymic affect Lymphatic: no lymphedema Results & Data Results & Data ([facility]) Vital Signs (Past 12 Hours) Vital Signs Temp Pulse Resp BP BP Pulse Ox 11/10/20 16:22 36.3 C L 61 19 133/70 93 11/10/20 14:03 91 11/10/20 11:25 36.7 C 59 L 19 119/73 91 11/10/20 07:34 36.8 C 69 20 132/87 92 Laboratory Results 11/10/20 11/10/20 Range/Units 07:27 07:27 WBC 7.34 (4.8-10.8) K/uL RBC 4.38 L (4.7-6.1) M/uL Hgb 13.0 L (14.0-18.0) g/dL Hct 37.4 L (42-52) % MCV 85.4 (80-100) fL MCH 29.7 (25-34) pg MCHC 34.8 (32-36) g/dL RDW Std Deviation 39.1 (36.4-46.3) fL RDW Coeff of Tyrell 12.4 (11.5-14.5) % Plt Count 307 (130-400) K/uL MPV 10.9 H (7.4-10.4) fL Immature Gran % (Auto) 0.8 % Neut % (Auto) 74.4 % Lymph % (Auto) 13.8 % Pettis % (Auto) 10.6 % Eos % (Auto) 0.3 % Baso % (Auto) 0.1 % Neut # (Auto) 5.46 (1.4-6.5) K/uL Lymph # (Auto) 1.01 L (1.2-3.4) K/uL Pettis # (Auto) 0.78 H (0.11-0.59) K/uL Eos # (Auto) 0.02 (0-0.5) K/uL Baso # (Auto) 0.01 (0-0.2) K/uL Immature Gran # (Auto) 0.06 H (0.00-0.02) K/uL Sodium 137 (136-145) mmol/L Potassium 4.0 (3.5-5.1) mmol/L Chloride 104 (98-107) mmol/L Carbon Dioxide 28 (21-32) mmol/L Anion Gap 5.0 (3-11) BUN 22 H (7-18) mg/dl Creatinine 0.82 (0.6-1.4) mg/dl Est Cr Clr Drug Dosing 61.6 ml/min Est GFR ( Amer) 94.8 Est GFR (Non-Af Amer) 81.8 BUN/Creatinine Ratio 27.2 H (10-20) Glucose 78 (70-99) mg/dl Calcium 9.0 (8.5-10.1) mg/dl Total Bilirubin 0.5 (0.2-1) mg/dl AST 53 H (15-37) U/L ALT 82 H (12-78) U/L Alkaline Phosphatase 32 L (45-117) U/L C-Reactive Protein 0.82 H (0-0.29) mg/dl Total Protein 5.8 L (6.4-8.2) gm/dl Albumin 2.3 L (3.4-5.0) gm/dl Globulin 3.5 (2.5-4.0) gm/dl Albumin/Globulin Ratio 0.7 L (0.9-2) PG Care Time/CCT Total # of Minutes Spent Total Time Spent with Patient: Total time spent is greater than 50% in coordination of care (as documented) at patient's floor/unit and/or counseling patient: Coding Level of Care Code 99331 Subseq Hosp Care Lvl 3 Diagnoses COVID-19 U07.1 Acute respiratory failure with hypoxia J96.01 SOB (shortness of breath) R06.02 Transaminitis R74.01 DVT prophylaxis Z29.9
[2020-11-11] MEDS: dexAMETHasone 6 MG in SYRINGE 0 ML IV SCH (08:59)
[2020-11-11] MEDS: guaiFENesin 600 MG TABCR PO SCH (08:59)
[2020-11-11] MEDS: ENOXAPARIN INJ 40 MG/0.4 ML SYR SQ SCH (08:59)
--- NOTE | 2020-11-11 14:10 | Discharge Summary ---
Date of Service November 11, 2020 Admission HPI Per Admitting Provider Rafi Swift is an 85-year-old male who presents to the ER with ongoing upper respiratory symptoms. Reports having his 1st dose of the Pfizer vaccine on October 22. Following this he appears to become unwell around October 27. Initial symptoms of fever, chills, shortness of breath, cough, fatigue. He denies any loss of taste or smell, myalgias, headache, sore throat, diarrhea, nausea/vomiting. Initially saw his primary care physician 3 days ago who diagnosed bronchitis and he was started on azithromycin. His symptoms continued to get worse and the following day went to located in emergency room and was discharged after about 4 hours. He was not diagnosed with COVID-19 pneumonia on either these occasions although unclear when/if a test was taken as he denies any nasal swabs. His son has been living with him for the past 4 days and has witnessed his decline with activities of daily living during this time. His appetite is significantly suppressed, very short of breath on minimal exertion and very fatigued. Today was so bad he was unable to feed himself. He usually lives alone in a 2nd floor apartment. Prior to this illness he was healthy with no chronic medical conditions. In the ER chest x-ray was concerning for interstitial infiltrates. Labs significant for lymphopenia with elevated D-dimer. SARS-CoV-2 PCR nasal swab positive. Initially plan to discharge as the patient is not hypoxic at rest however his son feels he is not safe to return home at the current time and fatigue state especially given he has to make it up a flight of stairs to get back into his apartment. Principal Diagnosis COVID-19 Pneumonia, Acute respiratory failure with hypoxia Discharge Exam Constitutional WD/WN, vitals as above Eyes + anicteric sclerae ENMT Ears: no hearing impairment Neck trachea midline, no thyromegaly Respiratory normal respiratory effort, lungs clear to auscultation Cardiovascular RRR, no murmur, no edema Gastrointestinal (Abdomen) normal bowel sounds, soft, nontender, no hepatosplenomegaly Musculoskeletal Extremities: extremities normal to inspection; no cyanosis and no clubbing Skin no rashes, warm and dry Neurologic moves all extremities and awake; no focal motor deficits Psychiatric A+Ox3, euthymic affect Lymphatic no lymphedema Discharge Data Allergies Allergy/AdvReac Type Severity Reaction Status Date / Time latex AdvReac skin Verified 11/03/20 11:40 irritation Consultations 11/03/20 13:06 ED Decision to Admit Stat Ordered Studies Chest X-Ray 11/03/20 10:53 XR chest 1V portable HISTORY: 85 years-old Male Dyspnea acute shortness of breath COMPARISON: None TECHNIQUE: Portable AP view of the chest FINDINGS: Interstitial opacities of the mid and lower lung zones. No pneumothorax, pleural effusion or overt pulmonary edema. Degenerative changes of the shoulders and spine. Cardiac silhouette is enlarged. IMPRESSION: 1. Interstitial opacities of the mid and lower lung zones may be on a chronic basis or represent an interstitial pneumonitis. 2. Cardiomegaly. ACT 112: Negative or not required by law. The above report was generated using voice recognition software. It may contain grammatical, syntax or spelling errors. Electronically signed by: Burt Cast M.D. 11/03/2020 11:13 AM Chest X-Ray 11/08/20 11:31 XR chest 1V portable CLINICAL HISTORY: worsening hypoxia, COVID COMPARISON STUDY: 11/03/2020 FINDINGS: The heart is borderline enlarged. There are peripheral airspace opacities right greater than left, consistent with a multifocal pneumonia. There is no overt failure. There are no pleural effusions.[ IMPRESSION: Progressive subtle airspace opacities, most pronounced within the right midlung zone peripherally. The findings are suggestive of a multifocal pneumonia. ACT 112: Negative or not required by law. Electronically signed by: Blade Montes M.D. 11/08/2020 12:08 PM Hospital Course (1) COVID-19: Main symptoms of shortness of breath on exertion and fatigue. His symptoms started approximately on 10/27 CXR with infiltrates, right midlung zone Repeat D-Dimer 1200 which was lower than previous, CRP is < 1, WBC normal, Cr normal, electrolytes stable patients saturations dropped to 93% so started dexamethasone 6mg IV daily He was outside the window for remdesivir treatment at the time of admission continue dexamethasone, day 9 of --> needs one more day as an outpt On 11/08, he desaturated on 4L mask, RN had to place him on 10L mask On 11/09, he was weaned down to 2 L and doing very well. When he is lying prone, he is 97-100% on 2 L-he was encouraged to continue lying prone at least 3-4 times a day for an hour at a time On 11/10 he is completely weaned off oxygen and doing very well Had a 2 step walk test with Respiratory therapy on 11/11 and never went below 92% on room air. He was with POx of 96% at rest while talking ot me on room air on day of discharge Has now completed a full course of azithromycin 500 mg p.o. once daily Overall significantly improved and can be discharged home today (2) Acute respiratory failure with hypoxia: due to COVID As above, now resolved (3) SOB (shortness of breath): Secondary to Covid-19 pneumonia-now resolved (4) Transaminitis: AST and ALT are mildly elevated but improved from previous, likely secondary to Covid-19 (5) DVT prophylaxis: Lovenox 40mg SQ BID Offered prophylactic low dose Xarelto 10mg daily after discharge, but he declines at this time due to concerns for side effects Disposition-dc to home Total Time Total Time Spent Total Time Spent (In Minutes): 35 min Total Time Includes: Examination of the Patient, Discharge Planning and Medication Reconciliation Discharge Plan Discharge Items Patient Disposition: Home - Self-Care Reason For Visit: COVID 19,PNEUMONIA Discharge Diagnosis: COVID-19 Pneumonia, Acute respiratory failure with hypoxia-resolved Condition on Discharge: Good Activity: As commented below Lifting: Gradually increase as tolerated Bathing: No limitations Exercise/Sports: Gradually increase as tolerated Non-emergency contact: Primary Care Provider Call non-emergency contact if: you have any medication questions, your symptoms worsen and you have a fever Follow-up/Referrals: Haile Richardson D.O. [Primary Care Provider] - (Follow up within 1-2 weeks.) Diet: Regular Addtl Attending Provider Instructions: You were admitted for COVID-19 Pneumonia and low oxygen levels. This all improved with treatment with a steroid called dexamethasone and with oxygen. At the time of discharge, you were no longer requiring any supplemental oxygen and were much improved. Please finish out one more day of the oral dexamethasone (steroid pill). If you develop worsening shortness of breath again, chest pains, calf or leg pain or swelling, please return immediately to the ER. You can still get your second COVID vaccine, but should wait at least another few weeks to fully recover from your illness. Please have your doctor order you a repeat chest x-ray in 3-4 weeks to ensure your pneumonia has completely resolved. Pending Studies at Discharge: No Stand-Alone Forms: [facility] Medications and DC Order Prescriptions: New dexamethasone 6 mg tablet 6 mg PO DAILY Qty: 1 RF: 0 Continued acetaminophen [Tylenol] 325 mg Tablet 650 mg PO QID PRN (Reason: Fever Or Pain) RF: 0 Discharge Orders: Discharge Order (Routine); Ordered 11/11/20 Ordered By: Ning Peng Admission Data Admit Date/Time: 11/05/20 12:19 Attending Provider: Ning Peng Admit Provider: Clem Jefferson Primary Care Provider: Haile Richardson Other Providers: Clem Jefferson Other Interventions: Discharge Summary Assessment (RN) Last Done: 11/11/20 14:11 Coding Level of Care Code D/C Day Management >30 mins Diagnoses COVID-19 U07.1 Acute respiratory failure with hypoxia J96.01 SOB (shortness of breath) R06.02 Transaminitis R74.01 DVT prophylaxis Z29.9
== END 2020-11-11 16:30 | disposition home or self-care (01) | DRG 177 ==
LOC: ED 10:05 → 2E 10:05 → SUATTDRO 13:11 → 2E 14:37 → 3W 11-04 09:50 → SUATTDRO 11-05 12:19 → 2S 11-08 10:44